=== PATIENT | male | born 1960 | race Caucasian/White ===

== ENCOUNTER 2016-08-26 16:15 | Emergency (ER) | payer MEDICARE ==
[2016-08-26 18:22] LABS: BUN/CREATININE RATIO 15 (0-10)
[2016-08-26 18:32] LABS: HEMOGLOBIN 13.9 gm/dl (14.0-17.5); RED BLOOD COUNT 4.79 M/UL (4.20-5.50); WHITE BLOOD COUNT 10.1 K/UL (4.5-11.0)
== END 2016-08-26 21:20 | disposition home or self-care (01) ==
LOC: ER1 16:15
PROVIDERS: Emergency Medicine
DX: J32.9 Chronic sinusitis, unspecified (principal); E11.65 Type 2 diabetes mellitus with hyperglycemia; R42 Dizziness and giddiness; R07.9 Chest pain, unspecified; M54.2 Cervicalgia; I10 Essential (primary) hypertension; Z79.84 Long term (current) use of oral hypoglycemic drugs; Z79.891 Long term (current) use of opiate analgesic; Z79.899 Other long term (current) drug therapy
CPT/HCPCS: 36415; 70450; 70486; 71010; 80053; 81001; 82550; 82553; 83874; 84484; 85025; 85610; 85730; 87040; 87081; 87880; 93005; 96365; 96375; 99285; J0696; J1885; J2405; J2930; J7030; J7050

== ENCOUNTER 2020-06-09 10:47 | Emergency (ER) | payer MEDICARE ==
[~2020-06-09 10:47] MED LIST: ALTACE10 MG PO; ALTACE5 MG PO; AMARYL4 MG PO; ASPIR-LOW81 MG PO; AZITHROMYCIN500 MG PO; CATAPRES 0.1MG0.1 MG PO; CLONIDINE HCL0.1 MG PO; DIABETA 5 MG TAB5 MG PO; FEOSOL325 MG PO; GLIMEPIRIDE4 MG PO; GLYBURIDE5 MG PO; HYDROCODON-ACE1 EAC6 PO; JANUVIA100 MG PO; JANUVIA25 MG PO; JARDIANCE25 MG PO; LEVAQUIN500 MG PO; LYRICA300 MG PO; NEXIUM40 MG PO; NORCO 10-325 T1 EACH PO; OMNICEF 300 MG300 MG PO; PANTOPRAZOLE SO40 MG PO; PERCOCET 10-321 EACH PO; PERCOCET 5/325 T1 EA PO; PROTONIX40 MG PO; TRAMADOL HCL50 MG PO; ULTRAM50 MG PO; ZOFRAN ODT 4 MG4 MG SL
[2020-06-09] MEDS ORDERED: HYDROCODON-ACE1 EAC4 PO (13:54)
== END 2020-06-09 14:36 | disposition home or self-care (01) ==
LOC: ER1 10:47
DX: S32.039A Unspecified fracture of third lumbar vertebra, initial encounter for closed fracture (principal); I10 Essential (primary) hypertension; Z90.49 Acquired absence of other specified parts of digestive tract; W01.0XXA Fall on same level from slipping, tripping and stumbling without subsequent striking against object, initial encounter
CPT/HCPCS: 72131; 72170; 99284

== ENCOUNTER 2020-07-16 19:43 | Inpatient (IN) | payer MEDICARE ==
[~2020-07-16] VITALS: Ht 175.3 cm; Wt 108.9 kg
[~2020-07-16 19:43] MED LIST changes: +HYDROCODON-ACE1 EAC4 PO
[2020-07-16 22:09] LABS: HEMOGLOBIN 14.7 gm/dl (14.0-17.5); RED BLOOD COUNT 5.33 M/UL (4.20-5.50); WHITE BLOOD COUNT 6.7 K/UL (4.5-11.0)
[2020-07-16 22:26] LABS: BUN/CREATININE RATIO 16 (0-10)
[2020-07-17 17:11] LABS: HEMOGLOBIN 12.6 gm/dl (14.0-17.5); RED BLOOD COUNT 4.66 M/UL (4.20-5.50); WHITE BLOOD COUNT 11.9 K/UL (4.5-11.0)
[2020-07-17 17:24] LABS: BUN/CREATININE RATIO 14 (0-10)
[2020-07-18 07:07] LABS: HEMOGLOBIN 10.8 gm/dl (14.0-17.5); WHITE BLOOD COUNT 10.1 K/UL (4.5-11.0)
[2020-07-18 07:15] LABS: RED BLOOD COUNT 4.03 M/UL (4.20-5.50)
[2020-07-18 07:34] LABS: BUN/CREATININE RATIO 19 (0-10)
--- NOTE | 2020-07-18 15:41 | NUR ---
DR. FABIAN STATED HE CALLED IN PT PAIN MED AT [facility] IN [place] FROM HIS OFFICE THAT IS NOT SHOWING ON [employer] [facility].
== END 2020-07-18 15:41 | disposition home health service (06) | DRG 493 ==
LOC: ER1 19:43 → CDU 21:40 → M/S 21:40
PROVIDERS: Internal Medicine; Orthopaedic Surgery; Physician Assistant; ADMIT Internal Medicine
PROC: 0PSD04Z Reposition Left Humeral Head with Internal Fixation Device, Open Approach (ICD-10-PCS; principal; 2020-07-17 14:01)
DX: S42.252A Displaced fracture of greater tuberosity of left humerus, initial encounter for closed fracture (principal); F11.20 Opioid dependence, uncomplicated; I10 Essential (primary) hypertension; E11.9 Type 2 diabetes mellitus without complications; M16.12 Unilateral primary osteoarthritis, left hip; K21.9 Gastro-esophageal reflux disease without esophagitis; Z20.822 Contact with and (suspected) exposure to COVID-19; G89.29 Other chronic pain; W18.30XA Fall on same level, unspecified, initial encounter; Z79.4 Long term (current) use of insulin; Z91.11 Patient's noncompliance with dietary regimen; Z85.038 Personal history of other malignant neoplasm of large intestine; Z90.49 Acquired absence of other specified parts of digestive tract; Z88.5 Allergy status to narcotic agent; Z82.5 Family history of asthma and other chronic lower respiratory diseases; Z80.1 Family history of malignant neoplasm of trachea, bronchus and lung
CPT/HCPCS: 36415; 71045; 73020; 73030; 73060; 73200; 73502; 76000; 80048; 80053; 82962; 83036; 83735; 84100; 85025; 85027; 86850; 86900; 86901; 90471; 90715; 93005; 96374; 97161; 97166; 97535; 99284; C1713; J0690; J1100; J1170; J2001; J2250; J2270; J2370; J2405; J2704; J2710; J2795; J3010; J3370; J7120; U0002

== ENCOUNTER → 2020-12-20 | Day surgery (SDC) | payer MEDICARE | END | disposition home or self-care (01) | LOC: OR 07:11 | DX: Z08 Encounter for follow-up examination after completed treatment for malignant neoplasm (principal); K64.0 First degree hemorrhoids; K59.09 Other constipation; K64.4 Residual hemorrhoidal skin tags; Z85.038 Personal history of other malignant neoplasm of large intestine; Z90.49 Acquired absence of other specified parts of digestive tract; I10 Essential (primary) hypertension; E66.8 Other obesity; K21.00 Gastro-esophageal reflux disease with esophagitis, without bleeding; E11.9 Type 2 diabetes mellitus without complications; Z86.010 Personal history of colon polyps; Z68.34 Body mass index [BMI] 34.0-34.9, adult; Z80.52 Family history of malignant neoplasm of bladder; Z79.899 Other long term (current) drug therapy | CPT/HCPCS: 82962; J0360; J2704; J7040 ==

== ENCOUNTER 2021-01-06 11:43 | Emergency (ER) | payer MEDICARE ==
[2021-01-06 12:48] LABS: HEMOGLOBIN 14.4 gm/dl (14.0-17.5); RED BLOOD COUNT 5.33 M/UL (4.20-5.50); WHITE BLOOD COUNT 4.6 K/UL (4.5-11.0)
[2021-01-06 13:09] LABS: BUN/CREATININE RATIO 22 (0-10)
== END 2021-01-06 18:00 | disposition home or self-care (01) ==
LOC: ER1 11:43
PROVIDERS: Emergency Medicine
DX: I10 Essential (primary) hypertension (principal); R51.9 Headache, unspecified; Z87.898 Personal history of other specified conditions; E11.9 Type 2 diabetes mellitus without complications
CPT/HCPCS: 70450; 71045; 80053; 82550; 82553; 83874; 84484; 85025; 85610; 85730; 93005; 99284

== ENCOUNTER 2021-07-29 14:55 | Observation (INO) | payer MEDICARE ==
[~2021-07-29] VITALS: Ht 175.3 cm; Wt 104.3 kg
[~2021-07-29 14:55] MED LIST changes: +CLONIDINE HCL0.2 MG PO
[2021-07-29 15:55] LABS: HEMOGLOBIN 12.3 gm/dl (14.0-17.5); RED BLOOD COUNT 5.07 M/UL (4.20-5.50); WHITE BLOOD COUNT 14.7 K/UL (4.5-11.0)
[2021-07-29 16:08] LABS: BUN/CREATININE RATIO 18 (0-10)
[2021-07-30 00:37] LABS: HEMOGLOBIN 11.6 gm/dl (14.0-17.5); RED BLOOD COUNT 4.56 M/UL (4.20-5.50); WHITE BLOOD COUNT 9.9 K/UL (4.5-11.0)
[2021-07-30 00:55] LABS: BUN/CREATININE RATIO 18 (0-10)
[2021-07-30] MEDS ORDERED: HYDROCODON-ACE1 EAC6 PO (15:06)
[2021-07-30] MEDS ORDERED: LIDOCAINE-PRILOC5 GM TOP (15:12)
[2021-07-30] MEDS ORDERED: IBU800 MG PO (15:25)
[2021-07-30] MEDS ORDERED: LOSARTAN-HCTZ1 EAC1 PO (15:25)
[2021-07-30] MEDS ORDERED: GLIMEPIRIDE4 MG PO (15:26)
[2021-07-31 03:07] LABS: HEMOGLOBIN 10.9 gm/dl (14.0-17.5); RED BLOOD COUNT 4.32 M/UL (4.20-5.50)
[2021-07-31 03:18] LABS: WHITE BLOOD COUNT 7.3 K/UL (4.5-11.0)
[2021-07-31 03:44] LABS: BUN/CREATININE RATIO 20 (0-10)
[2021-07-31] MEDS ORDERED: HYDROCODON-ACE1 EAC1 PO (09:34)
[2021-07-31] MEDS ORDERED: LEVOFLOXACIN750 MG PO (09:37)
--- NOTE | 2021-07-31 12:23 | NUR ---
CALLED UROLOGY : [facility]: SPOKE WITH HOWARD MICHAELS APRN , NO UROLOGY COVERAGE AT THIS TIME. HOWARD MICHAELS CALLED DR. [facility] IN [place] SPOKE WITH LOGAN. DR. MONROE OFFICE WILL SEE PATIENT TODAY UPON DISCHARGE. PT REFUSES TO GO TO [place]. STATED WILL DRIVE TO [place] AND GO THRU E.R. WOULD NOT CONSIDER GOING TO [place], EXPLAINED IMPORTANCE TO PT. PT STILL INSIST ON GOING TO [place]. DR. GEOFFREY HANSON. SONYA GRAYSON RN
--- NOTE | 2021-07-31 13:00 | NUR ---
[facility] WAS NOT ABLE TO SEE PT TODAY, WE FOUND A UROLOGIST TO SEE THIS PATIENT IN [place], PT WAS ADAMANT HE WOULD NOT SEEK ANY MEDICAL HELP FROM THE [facility] ARE[facility] AND THAT HE BIPASSED THAT ARE[facility] ANYTIME HE NEEDED CARE. HE REQUESTED TO HAVE HIS DISCHARGE INSTRUCTIONS AND THAT HE WAS WANTING TO GO TO THE [facility]. HIS FAMILY ARE AWARE AND HE WILL BE GOING WITH THEM.
== END 2021-07-31 12:50 | disposition home or self-care (01) ==
LOC: ER1 14:55 → M/S 18:15 → CDU 18:15 → M/S 18:15
PROVIDERS: Emergency Medicine; ADMIT Internal Medicine
DX: N45.1 Epididymitis (principal); N39.0 Urinary tract infection, site not specified; E11.65 Type 2 diabetes mellitus with hyperglycemia; I10 Essential (primary) hypertension; Z85.038 Personal history of other malignant neoplasm of large intestine; Z92.21 Personal history of antineoplastic chemotherapy; Z79.84 Long term (current) use of oral hypoglycemic drugs; Z79.899 Other long term (current) drug therapy; Z98.890 Other specified postprocedural states
CPT/HCPCS: 36415; 76870; 80048; 80053; 81001; 82607; 82728; 82746; 82962; 83036; 83540; 83550; 83605; 84132; 85025; 86140; 87040; 87086; 96372; 96374; 96375; 96376; 99285; G0378; J0696; J1650; J2270; J2405; J2543; J7030

== ENCOUNTER 2021-09-08 16:01 | Inpatient (IN) | payer MEDICARE ==
[~2021-09-08] VITALS: Ht 175.3 cm; Wt 100.2 kg
[~2021-09-08 16:01] MED LIST changes: +HYDROCODON-ACE1 EAC1 PO; +IBU800 MG PO; +LEVOFLOXACIN750 MG PO; +LIDOCAINE-PRILOC5 GM TOP; +LOSARTAN-HCTZ1 EAC1 PO
[2021-09-08 16:45] LABS: HEMOGLOBIN 14.4 gm/dl (14.0-17.5); RED BLOOD COUNT 5.41 M/UL (4.20-5.50); WHITE BLOOD COUNT 16.1 K/UL (4.5-11.0)
[2021-09-08 17:20] LABS: BUN/CREATININE RATIO 21 (0-10)
--- NOTE | 2021-09-08 20:50 | NUR ---
PT UNABLE TO GIVE LIST OF HOME MEDICATIONS. PT ALSO UNABLE TO VERIFY MEDICATIONS/DOSAGES OF CURRENT HOME MEDICATIONS FROM MEDICATION CLAIM HISTORY.
[2021-09-09 05:58] LABS: HEMOGLOBIN 12.5 gm/dl (14.0-17.5)
[2021-09-09 06:00] LABS: RED BLOOD COUNT 4.85 M/UL (4.20-5.50); WHITE BLOOD COUNT 10.4 K/UL (4.5-11.0)
[2021-09-09 06:17] LABS: BUN/CREATININE RATIO 23 (0-10)
[2021-09-09] MEDS ORDERED: HYDROCODON-ACE1 EAC6 PO (11:52)
[2021-09-09] MEDS ORDERED: JARDIANCE25 MG PO (11:54)
[2021-09-09] MEDS ORDERED: OZEMPIC0.25 MG/0. SQ (11:59)
[2021-09-10 04:55] LABS: HEMOGLOBIN 12.5 gm/dl (14.0-17.5); RED BLOOD COUNT 4.65 M/UL (4.20-5.50)
[2021-09-10 05:02] LABS: WHITE BLOOD COUNT 6.7 K/UL (4.5-11.0)
[2021-09-10 05:28] LABS: BUN/CREATININE RATIO 23 (0-10)
[2021-09-11 06:51] LABS: HEMOGLOBIN 11.9 gm/dl (14.0-17.5); RED BLOOD COUNT 4.56 M/UL (4.20-5.50); WHITE BLOOD COUNT 8.1 K/UL (4.5-11.0)
[2021-09-11 07:11] LABS: BUN/CREATININE RATIO 20 (0-10)
[2021-09-12 05:01] LABS: HEMOGLOBIN 12.5 gm/dl (14.0-17.5); RED BLOOD COUNT 4.74 M/UL (4.20-5.50); WHITE BLOOD COUNT 8.1 K/UL (4.5-11.0)
[2021-09-12 05:16] LABS: BUN/CREATININE RATIO 21 (0-10)
[2021-09-12] MEDS ORDERED: SULFAMETHOXAZO1 EACH PO (19:46)
[2021-09-12] MEDS ORDERED: K-TAB ER10 MEQ PO (19:48)
[2021-09-12] MEDS ORDERED: HYDRALAZINE HCL25 MG PO (19:48)
[2021-09-12] MEDS ORDERED: ASPIRIN EC81 MG PO (20:04)
[2021-09-12] MEDS ORDERED: LEVOFLOXACIN750 MG PO ×2 (20:04→20:12)
[2021-09-12] MEDS ORDERED: LIPITOR40 MG PO (20:04)
[2021-09-12] MEDS ORDERED: LEVOFLOXACIN500 MG PO (20:06)
--- NOTE | 2021-09-12 21:09 | NUR ---
PATIENT DISCHARGED HOME. DRESSING CHANGE SUPPLIES SENT HOME WITH PATIENT PER AND . PT ALSO DISCHARGED HOME WITH POST-OP SHOE IN PLACE PER . PATIENT STABLE AT THE TIME OF DISCHARGE. EDUCATED PATIENT ABOUT ALL OF DISCHARGE INFORMATION, PRESCRIPTIONS, FOLLOW-UP APPOINTMENTS, WELL FOLLOW UP LAB ORDERS, ETC. PATIENT VERBALIZED UNDERSTANDING.
== END 2021-09-12 21:09 | disposition home or self-care (01) | DRG 264 ==
LOC: ER1 16:01 → CDU 19:06 → MED SURG 4 19:06
PROVIDERS: Internal Medicine; Preventive Medicine Occupational Medicine; ADMIT Internal Medicine
PROC: 0JBQ0ZZ Excision of Right Foot Subcutaneous Tissue and Fascia, Open Approach (ICD-10-PCS; principal; 2021-09-12)
DX: E11.52 Type 2 diabetes mellitus with diabetic peripheral angiopathy with gangrene (principal); F11.20 Opioid dependence, uncomplicated; L03.115 Cellulitis of right lower limb; Z20.822 Contact with and (suspected) exposure to COVID-19; E11.40 Type 2 diabetes mellitus with diabetic neuropathy, unspecified; B95.61 Methicillin susceptible Staphylococcus aureus infection as the cause of diseases classified elsewhere; E87.6 Hypokalemia; I10 Essential (primary) hypertension; E11.621 Type 2 diabetes mellitus with foot ulcer; K21.9 Gastro-esophageal reflux disease without esophagitis; G89.29 Other chronic pain; F03.90 Unspecified dementia, unspecified severity, without behavioral disturbance, psychotic disturbance, mood disturbance, and anxiety; Z79.01 Long term (current) use of anticoagulants; Z79.82 Long term (current) use of aspirin; Z85.038 Personal history of other malignant neoplasm of large intestine; Z82.5 Family history of asthma and other chronic lower respiratory diseases
CPT/HCPCS: 36415; 73620; 73700; 80048; 80053; 80202; 81001; 82962; 83036; 83605; 83690; 85025; 85027; 85652; 86140; 87040; 87070; 87077; 87086; 87186; 87205; 93926; 96365; 96366; 99284; J1650; J2185; J2270; J2543; J3370; J7070

== ENCOUNTER 2021-09-17 17:57 | Inpatient (IN) | payer MEDICARE ==
[~2021-09-17] VITALS: Ht 175.3 cm; Wt 108.9 kg
[~2021-09-17 17:57] MED LIST changes: +ASPIRIN EC81 MG PO; +HYDRALAZINE HCL25 MG PO; +K-TAB ER10 MEQ PO; +LEVOFLOXACIN500 MG PO; +LIPITOR40 MG PO; +OZEMPIC0.25 MG/0. SQ; +SULFAMETHOXAZO1 EACH PO
[2021-09-17 19:24] LABS: HEMOGLOBIN 13.5 gm/dl (14.0-17.5); RED BLOOD COUNT 5.17 M/UL (4.20-5.50); WHITE BLOOD COUNT 7.4 K/UL (4.5-11.0)
[2021-09-17 19:30] LABS: BUN/CREATININE RATIO 21 (0-10)
[2021-09-18 02:39] LABS: HEMOGLOBIN 13.1 gm/dl (14.0-17.5); RED BLOOD COUNT 4.99 M/UL (4.20-5.50); WHITE BLOOD COUNT 6.3 K/UL (4.5-11.0)
[2021-09-18 03:10] LABS: BUN/CREATININE RATIO 22 (0-10)
[2021-09-18] MEDS ORDERED: AUGMENTIN 500-500 MG PO (21:28)
[2021-09-18] MEDS ORDERED: BACTRIM DS TAB1 EACH PO (21:28)
--- NOTE | 2021-09-18 22:02 | NUR ---
AFTER DR. PA'S CONSULT WITH THE PATIENT, HE INFORMED ME THAT THIS PATIENT NEEDS TO BE DISCHARGED TO GO TO A HIGHER LEVEL OF CARE FACILITY TO RECEIVE TREATMENT FOR HIS FOOT THAT HAS AN OCCULSION. HE CONSULTED DR. PIÑA TO ORDER DISCHARGE ORDERS FOR THE PATIENT. DR. PIÑA INFORMED ME THAT HE COULD NOT DISCHARGE THE PATIENT DUE TO THE INFECTION IN THE PATIENTS FOOT, BUT THAT THE PATIENT HAS AGREED TO SIGN OUT AMA TO RECEIVE HIGHER TREATMENT AT ANOTHER FACILITY. AFTER DISCUSSING WITH THE PATIENT THE RISK/BENEFITS OF LEAVING THE FACILITY, HE VERBALIZED UNDERSTANDING BUT INSISTED TO SIGN OUT AGAINST MEDICAL ADVICE. I THEN WITNESS THE PATIENT SIGN THE AGAINST MEDICAL ADVICE FORM AND GAVE HIM THE PRINTED AND SIGNED PRESCRIPTIONS WELL THE ULTRA SOUND DOPPLER REPORT DR. PA REQUESTED TO BE GAVE TO THE PATIENT.
== END 2021-09-18 22:04 | disposition left against medical advice (07) | DRG 638 ==
LOC: ER1 17:57 → CDU 20:44 → M/S 20:44
PROVIDERS: Physician Assistant Medical; ADMIT Internal Medicine
DX: E11.628 Type 2 diabetes mellitus with other skin complications (principal); F11.20 Opioid dependence, uncomplicated; M86.671 Other chronic osteomyelitis, right ankle and foot; E11.51 Type 2 diabetes mellitus with diabetic peripheral angiopathy without gangrene; N17.9 Acute kidney failure, unspecified; G89.29 Other chronic pain; E66.9 Obesity, unspecified; I73.9 Peripheral vascular disease, unspecified; I10 Essential (primary) hypertension; Z85.038 Personal history of other malignant neoplasm of large intestine; Z79.899 Other long term (current) drug therapy; Z82.5 Family history of asthma and other chronic lower respiratory diseases; Z79.4 Long term (current) use of insulin
CPT/HCPCS: 73630; 73718; 80048; 80053; 82962; 83605; 85025; 85610; 85652; 86140; 87040; 87070; 87205; 96365; 96366; 96375; 96376; 99285; J1650; J2185; J2270; J2405; J2543; J3370; J7030; J7070